=== PATIENT | female | born 1990 | race African-American/Black ===

== ENCOUNTER 2017-10-02 11:04 | Emergency (ER) | payer SELFPAY ==
[~2017-10-02] VITALS: Ht 170.2 cm; Wt 65.0 kg
[2017-10-02 11:10] VITALS: BP 103/57
== END 2017-10-02 11:45 | disposition left against medical advice (07) ==
LOC: ER 11:09
DX: R10.9 Unspecified abdominal pain (principal); Z53.21 Procedure and treatment not carried out due to patient leaving prior to being seen by health care provider

== ENCOUNTER 2017-10-02 12:34 | Emergency (ER) | payer SELFPAY ==
[~2017-10-02] VITALS: Ht 157.5 cm; Wt 68.0 kg
[2017-10-02 12:39] VITALS: BP 106/73
== END 2017-10-02 13:16 | disposition left against medical advice (07) ==
LOC: ER 12:41
DX: R10.84 Generalized abdominal pain (principal)
CPT/HCPCS: 99283